=== PATIENT | female | born 1940 ===

== ENCOUNTER 2023-08-21 06:23 | Day surgery (SDC) | payer OTHER ==
[~2023-08-21 06:23] MED LIST: AMLODIPINE BESYL5 MG; ATORVASTATIN CA20 MG; AVAPRO75 MG; CARVEDILOL ER40 MG; INDAPAMIDE1.25 MG
== END 2023-08-21 12:45 | disposition home or self-care (01) ==
LOC: CIR.AMB 06:23
PROVIDERS: ATTEND Obstetrics & Gynecology
DX: N84.0 Polyp of corpus uteri (principal); N87.0 Mild cervical dysplasia; R93.89 Abnormal findings on diagnostic imaging of other specified body structures; Z20.822 Contact with and (suspected) exposure to COVID-19

== ENCOUNTER 2023-11-06 06:23 | Day surgery (SDC) | payer OTHER ==
[2023-11-06] MEDS ORDERED: CEFAZOLIN SODIUM 1,000 MG VIAL ONE (08:22)
[2023-11-06] MEDS ORDERED: POVIDONE-IODINE 118 ML BOTT TOP ONE (09:46)
[2023-11-06] MEDS ORDERED: EPINEPHRINE HCL/PF 1 MG/ML AMPUL ONE (11:01)
[2023-11-06] MEDS ORDERED: EPINEPHRINE HCL/PF 1 MG/ML AMPUL IR ONE (11:15)
[2023-11-06] MEDS ORDERED: CEFAZOLIN SODIUM 1,000 MG VIAL IV ONE (11:15)
[2023-11-06] MEDS ORDERED: ONDANSETRON HCL 2 MG/ML VIAL ONE (13:01)
== END 2023-11-06 14:45 | disposition home or self-care (01) ==
LOC: CIR.AMB 06:23
PROVIDERS: ATTEND Obstetrics & Gynecology
DX: N87.0 Mild cervical dysplasia (principal)